=== PATIENT | female | born 1965 | race Caucasian/White ===

== ENCOUNTER 2021-04-18 18:49 | Emergency (ER) | payer OTHER ==
[~2021-04-18] VITALS: Ht 157.5 cm; Wt 87.1 kg
[2021-04-18] MEDS ORDERED: PREG75 PO (19:38)
[2021-04-18] MEDS ORDERED: PANT40 PO (19:39)
[2021-04-18] MEDS ORDERED: GABA400 PO (19:39)
[2021-04-18] MEDS ORDERED: AMLO10 PO (19:40)
[2021-04-18] MEDS ORDERED: ROSU5 PO (19:40)
[2021-04-18] MEDS ORDERED: ATROVENT HFA12.9 GM INH (19:41)
[2021-04-18] MEDS ORDERED: PRAZ1 PO (19:41)
[2021-04-18] MEDS ORDERED: CYCL10 PO (20:37)
[2021-04-18] MEDS ORDERED: Percocet 5-3251 EACH PO (20:37)
== END 2021-04-18 20:57 | disposition home or self-care (01) ==
LOC: ER 18:49
DX: M54.5 Low back pain (principal); I10 Essential (primary) hypertension; E78.5 Hyperlipidemia, unspecified; V49.40XA Driver injured in collision with unspecified motor vehicles in traffic accident, initial encounter; Y92.410 Unspecified street and highway as the place of occurrence of the external cause
CPT/HCPCS: 96374; 96375; 99284-25; A9270; J1885; J2270